=== PATIENT | male | born 2005 | race African-American/Black ===

== ENCOUNTER 2024-06-28 10:57 | Emergency (ER) | payer BC, SELFPAY ==
[2024-06-28 11:06] VITALS: BP 156/88
[2024-06-28 11:14] VITALS: BP 140/87
--- NOTE | 2024-06-28 11:43 | ED.GENMED ---
History of Present Illness
General
Chief Complaint: Chest Pain
Source: patient
Exam Limitations: none
Time Seen by Provider: 06/28/24 11:34
History of Present Illness
History of Present Illness:
18-year-old male presents with onset of chest pain starting last evening has been intermittent remittent since this morning. He notes it is very short lasting discomfort aching in nature made worse when he turns his head down. No associated
diaphoresis nausea or shortness of breath. Pain is not pleuritic. No recent travel or surgery. No leg swelling or calf pain. No injury. No family history of cardiac disease.
Phy Exam
Physical Exam
Physical Exam:
General: Well-appearing nontoxic male no acute respiratory distress
HEENT: Normocephalic atraumatic
Heart: Regular rate and rhythm
Lungs: Clear no wheeze
Abdomen is soft nontender
Extremities: No cyanosis
Scores
Heart Score for Chest Pain Patients
STEMI patient?: No
History: Slightly or Non-Suspicious
ECG: Normal
Age: </= 45 years
Risk Factors: No Risk Factors
Troponin: </= Normal Limit
Heart Score for Chest Pain Patients: 0
Heart Score Risk: 2.5% MACE over next 6 weeks
Course
Orders/Labs/Results
Orders:
Orders
06/28/24 10:58
Electrocardiogram (*1) Urgent
Reason for Study: Chest Pain
EKG- Treatment ONCE
06/28/24 11:00
Electrocardiogram (*1) Urgent
Reason for Study: Chest Pain
EKG- Treatment ONCE
06/28/24 11:39
Complete Blood Count/With Diff Urgent
Comprehensive Metabolic Panel Urgent
Manual Differential Urgent
Monotest Urgent
Comment: ADD ON
Troponin I Urgent
06/28/24 11:43
CR Chest - 2 Views Urgent
Comment:
Reason For Exam: chest pain
06/28/24 13:02
Add On- LAB Urgent
Tests Added?: monotest
Abnormal Lab Results
06/28/24
11:39
WBC 3.2 L 10^3/uL
(4.8-10.8)
Abs Neuts (Manual) 0.6 L* 10^3/uL
(1.4-6.5)
Segmented Neutrophils 18 L %
(42-75)
Lymphocytes (Manual) 75 H %
(20-51)
Glucose 103 H mg/dl
(70-99)
Albumin 5.1 H g/dl
(3.5-5.0)
06/28/24 11:39
06/28/24 11:39
Vital Signs
Initial and Last Documented VS:
Initial Vital Signs
Temp Pulse Resp BP Pulse Ox
98.6 F 62 16 156/88 98
06/28/24 11:06 06/28/24 11:06 06/28/24 11:06 06/28/24 11:06 06/28/24 11:06
Last Documented Vital Signs
Temp Pulse Resp BP Pulse Ox
98.6 F 82 18 140/87 100
06/28/24 11:06 06/28/24 11:15 06/28/24 12:40 06/28/24 11:14 06/28/24 11:14
MDM/Problems Addressed
Differential Diagnosis Includes:
Chest pain atypical in nature. Consider ACS arrhythmia musculoskeletal chest pain. PE on the list but unlikely secondary to no risk factors and stable vital signs
EKG through triage shows sinus rhythm with early repolarization but no ischemic changes. Labs including troponin and chest x-ray pending
*Critical Care Note
Total Time (30-74mins, 75-104mins- exclusive of procedures): Not Applicable
Update Note
Update Note:
Cardiac workup negative including troponin and chest x-ray. Patient remained symptom-free and nontoxic upon reassessment. Incidentally noted patient has low white blood cell count at a value of 3.2 and the absolute neutrophils were 0.6. Question
possible viral etiology. Monotest was added which was negative but did discuss this with hematology who said that he should get his blood rechecked in 2 weeks and if persistent abnormalities occur he should follow-up with hematology. This was
relayed to the patient. Stable for discharge
ED Attending Note
-
Portions of this chart may have been created with voice recognition software.� Occasional wrong word or��sound alike� substitutions may have occurred due to the inherent limitations of voice recognition software.
Discharge Plan
Departure
Patient Disposition: Home (Routine Discharge)
Date of Disposition: 06/28/24
Time of Disposition: 15:27
Patient with high blood pressure during this ER visit?: No
Discharge Problem:
Chest pain
Instructions: Chest Pain PCP Follow Up
Referrals:
NONE,* [Family Provider] -
Activity Restrictions/Additional Instructions:
Please follow-up with your family doctor in 2 weeks for recheck of your blood work. As discussed, your white blood cell count is low. This could be related to viral illness but needs to be rechecked. Please return here for worsening symptoms
Interventions
Interventions:
*Risk Screen - Suicide Last Done: 06/28/24 11:06
*General Assessment Last Done: 06/28/24 11:16
*Neglect/Abuse Screening Last Done: 06/28/24 11:06
*ED COVID-19 Vaccine History Last Done: 06/28/24 11:16
ED- Cardiac Assessment Last Done: 06/28/24 11:16
Discharge Date and Time
Print Language: DIVEHI
[2024-06-28 12:04] LABS: ALT (SGPT) 30 U/L (0-50); AST (SGOT) 28 U/L (17-59); Albumin 5.1 g/dl (3.5-5.0); Alkaline Phosphatase 74 U/L (38-126); Blood Urea Nitrogen 9 mg/dl (9-20); Carbon Dioxide 28 mmol/L (22-30); Chloride 101 mmol/L (98-107); Glucose 103 mg/dl (70-99); Potassium 4.5 mmol/L (3.5-5.1); Sodium 140 mmol/L (135-145); Total Bilirubin 1.3 mg/dl (0.2-1.3); Total Protein 8.2 g/dl (6.3-8.2); eGFR > 60.00
[2024-06-28 12:12] LABS: Troponin I < 0.012 ng/ml
[2024-06-28 12:16] LABS: Hematocrit 46.1 % (39.0-52.0); Hemoglobin 15.9 g/dL (13.0-18.0); Mean Corp Hgb Conc. 34.5 g/dL (33.0-37.0); Mean Corpuscular Hgb 30.4 pg (27.0-31.0); Mean Corpuscular Volume 88.1 fL (80.0-94.0); Mean Platelet Volume 8.9 fL (7.4-10.4); Platelet Count 261 10^3/uL (130-400); Red Blood Cell Count 5.23 10^6/uL (4.70-6.10); Red Cell Dist. Width 11.7 % (11.5-14.5); White Blood Cell Count 3.2 10^3/uL (4.8-10.8)
[2024-06-28 12:53] LABS: Band Neutrophils 1 % (0-3); Eosinophils 2 % (0-6); Lymphocytes 75 % (20-51); Monocytes 4 % (2-9); Segmented Neutrophils 18 % (42-75)
[2024-06-28 12:54] LABS: Normal RBC Morphology Yes; Platelets Checked Yes; Total Cells Counted 100
[2024-06-28 12:56] LABS: Absolute Neutrophils -Man Diff 0.6 10^3/uL (1.4-6.5)
[2024-06-28 13:02] VITALS: BP 120/54
[2024-06-28 14:58] LABS: Monotest Negative (Negative)
[2024-06-28 15:31] VITALS: BP 132/75
== END 2024-06-28 15:40 | disposition home or self-care (01) ==
LOC: EMR 10:57
PROVIDERS: EMERGENCY PHYSICIAN Emergency Medicine
DX: R07.89 Other chest pain (principal)
CPT/HCPCS: 99285; 71046; 80053; 84484; 85025; 86308; 93005